=== PATIENT | male | born 1985 | race Hispanic/Latino ===

== ENCOUNTER 2020-09-02 11:24 | Emergency (ER) | payer BC, SELFPAY ==
[2020-09-02] MEDS ORDERED: Proparacaine 0.5% Opth 15 ML BOT ONE (11:48)
== END 2020-09-02 12:54 | disposition home or self-care (01) ==
LOC: ERS 11:24
DX: H57.11 Ocular pain, right eye (principal); I10 Essential (primary) hypertension; F17.290 Nicotine dependence, other tobacco product, uncomplicated; Z79.899 Other long term (current) drug therapy
CPT/HCPCS: 70450